=== PATIENT | female | born 1990 | race Caucasian/White ===

== ENCOUNTER 2025-01-24 18:25 | Emergency (ER) | payer OTHER | END 2025-01-24 19:52 | disposition home or self-care (01) | LOC: MW.ED 18:25 | DX: S99.911A Unspecified injury of right ankle, initial encounter (principal); Z75.3 Unavailability and inaccessibility of health-care facilities; W17.2XXA Fall into hole, initial encounter; Y93.89 Activity, other specified; Y99.0 Civilian activity done for income or pay | CPT/HCPCS: 73610-26-RT; 73610-RT; 99283 ==